=== PATIENT | female | born 1980 | race American Indian/Alaskan Native ===

== ENCOUNTER 2017-02-18 15:09 | Emergency (ER) | payer MEDICAID ==
[2017-02-18] MEDS ORDERED: ZOFRAN ODT PO ONE (16:57)
[2017-02-18 17:07] LABS: Basophils % (Auto) 0.4 % (0.0-1.8); Eosinophils % (Auto) 0.9 % (0.0-4.3); Hemoglobin 13.8 gm/dl (10.1-14.3); Mean Corpuscular HGB Conc 34 % (30-34); Mean Corpuscular Hemoglobin 32 pg (28-32); Mean Corpuscular Volume 94 fl (79-97); Platelet Count 237 K/mm3 (140-440); Red Blood Count 4.36 M/mm3 (3.65-5.03); Red Cell Distribution Width 13.2 % (13.2-15.2); White Blood Count 8.4 K/mm3 (4.5-11.0)
[2017-02-18 17:30] LABS: Alanine Aminotransferase 16 units/L (7-56); Albumin 3.6 g/dL (3.9-5); Albumin/Globulin Ratio 0.9 %; Alkaline Phosphatase 77 units/L (35-129); Anion Gap 18 mmol/L; BUN/Creatinine Ratio 16; Blood Urea Nitrogen 8 mg/dL (7-17); Calcium 9.3 mg/dL (8.4-10.2); Carbon Dioxide 23 mmol/L (22-30); Chloride 97.7 mmol/L (98-107); Glucose 115 mg/dL (65-100); Lipase 40 units/L (13-60); Potassium 3.8 mmol/L (3.6-5.0); Sodium 135 mmol/L (137-145); Total Protein 7.7 g/dL (6.3-8.2)
[2017-02-18 17:49] LABS: Bacteria,Urine 2+ /HPF (Negative); Bilirubin,Urine NEG (Negative); Blood,Urine NEG (Negative); Ketones,Urine 20 mg/dL (Negative); Leukocyte Esterase,Urine TR (Negative); Mucus,Urine 3+ /HPF; Nitrite,Urine NEG (Negative)
[2017-02-18 23:31] VITALS: BP 110/79
== END 2017-02-19 02:09 | disposition left against medical advice (07) ==
LOC: ED 15:09
DX: O21.9 Vomiting of pregnancy, unspecified (principal); Z3A.10 10 weeks gestation of pregnancy
CPT/HCPCS: 36415; 80053; 81001; 83690; 84702; 84703; 85025; Q0162

== ENCOUNTER 2017-12-26 18:48 | Emergency (ER) | payer MEDICAID ==
[2017-12-26] MEDS ORDERED: NORCO 7.5/325 PO ONE (19:10)
[2017-12-26] MEDS ORDERED: NORCO 7.5/325 ONE (19:12)
[2017-12-26] MEDS ORDERED: MOTRIN PO ONE (21:39)
--- NOTE | 2017-12-26 22:14 | Emergency Department Report ---
ED Animal Bite HPI - General Chief Complaint: Animal Bite Stated Complaint: DOG BITE Time Seen by Provider: 12/26/17 22:01 Source: patient Mode of arrival: Ambulatory Limitations: No Limitations - History of Present Illness Initial Comments: Patient is 37-year-old -[place]ag[place] female who presents status post dog bite right wrist Mrs. patient dog's all immunizations up-to-date states she was placing a feeding bowl and Wrist complains of 6/10 pain mild swelling and bruising noted puncture wounds 2 to right wrist all bleeding controlled by direct pressure is no numbness or notes tingling pain is exacerbated by movement pain is relieved by splinting. Wound irrigated copiously by fire department soap and water and peroxide sterile dressing was applied. MD Complaint: animal bite Onset/Timin -: hour(s) Right: Forearm (puncture wounds x 2 ) Animal: dog Animal Control Notified: Yes Description: household pet, immunizations UTD Mechanism: bite Pain Description: sharp Severity scale (0 -10): 5 Context: playing with animal, other (placing food bowl ) Associated Symptoms: bleeding Treatments Prior to Arrival: wound dressing(s), irrigation, pressure - Related Data Patient Tetanus UTD: No Home Medications Medication Instructions Recorded Confirmed Last Taken Tablet 1 tab PO DAILY 02/06/17 02/06/17 Unknown Previous Rx's Medication Instructions Recorded Last Taken Type Amoxicillin/Potassium Clav 1 each PO BID #20 tablet 12/26/17 Unknown Rx [Augmentin 875-125 Tablet] Bacitracin/Polymyxin B Sulfate 1 applicatio TP BID 10 Days #1 tube 12/26/17 Unknown Rx [Bacitracin-Polymyxin Ointment] traMADol [Ultram] 50 mg PO Q6HR PRN #12 tablet 12/26/17 Unknown Rx Allergies Allergy/AdvReac Type Severity Reaction Status Date / Time No Known Allergies Allergy Verified 02/06/17 10:15 ED Review of Systems ROS: Stated complaint: DOG BITE Other details as noted in HPI Constitutional: denies: chills, fever Eyes: denies: eye pain, eye discharge, vision change ENT: denies: ear pain, throat pain Respiratory: denies: cough, shortness of breath, wheezing Cardiovascular: denies: chest pain, palpitations Endocrine: no symptoms reported Gastrointestinal: denies: abdominal pain, nausea, diarrhea Genitourinary: denies: urgency, dysuria, discharge Musculoskeletal: as per HPI, myalgia Skin: other (puncture wound right wrist ). denies: rash, lesions Neurological: denies: headache, weakness, paresthesias Psychiatric: denies: anxiety, depression Hematological/Lymphatic: denies: easy bleeding, easy bruising ED Past Medical Hx - Past Medical History Previous Medical History?: Yes Hx Hypertension: Yes - Surgical History Additional Surgical History: - Social History Smoking Status: Never Smoker Substance Use Type: None - Medications Home Medications: Home Medications Medication Instructions Recorded Confirmed Last Taken Type Tablet 1 tab PO DAILY 02/06/17 02/06/17 Unknown History Amoxicillin/Potassium Clav 1 each PO BID #20 tablet 12/26/17 Unknown Rx [Augmentin 875-125 Tablet] Bacitracin/Polymyxin B Sulfate 1 applicatio TP BID 10 Days #1 tube 12/26/17 Unknown Rx [Bacitracin-Polymyxin Ointment] traMADol [Ultram] 50 mg PO Q6HR PRN #12 tablet 12/26/17 Unknown Rx ED Physical Exam - General Limitations: No Limitations General appearance: alert, in no apparent distress - Head Head exam: Present: atraumatic, normocephalic - Eye Eye exam: Present: normal appearance - ENT ENT exam: Present: mucous membranes moist - Neck Neck exam: Present: normal inspection - Respiratory Respiratory exam: Present: normal lung sounds bilaterally. Absent: respiratory distress - Cardiovascular Cardiovascular Exam: Present: regular rate, normal rhythm. Absent: systolic murmur, diastolic murmur, rubs, gallop - GI/Abdominal GI/Abdominal exam: Present: soft, normal bowel sounds - Rectal Rectal exam: Present: deferred - Extremities Exam Extremities exam: Present: normal inspection, full ROM, tenderness (right dorsal wrist ), normal capillary refill. Absent: pedal edema, calf tenderness - Expanded Upper Extremity Exam Right Hand Wrist exam: Present: full ROM, tenderness, abrasion, other (puncture dorsal /anterior ). Absent: swelling, laceration, ecchymosis, deformity, crepidus, dislocation, erythema, nail avulsion, subungual hematoma Neuro motor exam: Present: wrist extension intact, thumb opposition intact, thumb IP flexion intact, thumb adduction intact, fingers 2-5 abduction intact Neurosensory exam: Present: 2-point discrimination, radial nerve intact, ulnar nerve intact, median nerve intact Vascular: Present: normal capillary refill, radial pulse, brachial pulse, ulnar pulse. Absent: vascular compromise, Pallo, pulse deficit radial art, pulse deficit ulnar art, pulse deficit brachial art - Back Exam Back exam: Present: normal inspection - Neurological Exam Neurological exam: Present: alert, oriented X3, CN II-XII intact. Absent: motor sensory deficit - Psychiatric Psychiatric exam: Present: normal affect, normal mood - Skin Skin exam: Present: warm, dry, intact, normal color. 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 ED Disposition Clinical Impression: Dog bite of extremity Disposition: DC-01 TO HOME OR SELFCARE Is pt being admited?: No Does the pt Need Aspirin: No Condition: Good Instructions: Animal Bite (ED), Acute Wound Care (ED) Prescriptions: Amoxicillin/Potassium Clav [Augmentin 875-125 Tablet] 1 each PO BID #20 tablet Bacitracin/Polymyxin B Sulfate [Bacitracin-Polymyxin Ointment] 1 applicatio TP BID 10 Days #1 tube traMADol [Ultram] 50 mg PO Q6HR PRN #12 tablet PRN Reason: Pain Referrals: LUPIS LAMA MD [Staff Physician] - 3-5 Days Forms: Work/School Release Form(ED) Time of Disposition: 22:20
[2017-12-26] MEDS ORDERED: AUGMENTIN 875 MG PO ONE (22:16)
[2017-12-26] MEDS ORDERED: BOOSTRIX IM ONE (22:16)
--- NOTE | 2017-12-26 22:28 | XRay Report ---
FINAL REPORT EXAM: XR WRIST 2V RT HISTORY: dog bite TECHNIQUE: Frontal and lateral views right wrist Comparison: None FINDINGS: There is no evidence of fracture or subluxation. The joint spaces are maintained. The soft tissues are partially obscured by overlying dressing material. There is no evidence of radiopaque foreign body. IMPRESSION: 1. No evidence of fracture, subluxation or radiopaque foreign body.
[2017-12-26 22:55] VITALS: BP 186/100
== END 2017-12-26 22:54 | disposition home or self-care (01) ==
LOC: ED 18:48
DX: S61.531A Puncture wound without foreign body of right wrist, initial encounter (principal); W54.0XXA Bitten by dog, initial encounter; Y93.89 Activity, other specified; Y92.89 Other specified places as the place of occurrence of the external cause; Y99.8 Other external cause status
CPT/HCPCS: 90471; 90715